=== PATIENT | male | born 1975 | race Caucasian/White ===

== ENCOUNTER 2022-06-13 09:50 | Emergency (ER) | payer OTHER ==
[~2022-06-13] VITALS: Ht 175.3 cm; Wt 145.1 kg
[2022-06-13 09:52] VITALS: BP_SYST 140
--- NOTE | 2022-06-13 09:57 | NUR ---
Pt present to ED via EMS reporting SVT ranging from 180-200bpm at residence. EMS reports pt self converrted in route to ED. Pt AOx4 GCS 15 in bed 3. Pt currently being seen by ED physician. Pt on quality assurance monitor final. EKG done.
--- NOTE | 2022-06-13 09:57 | NUR ---
MD MONIQUE AT BEDSIDE FOR ASSESS. PT VSS. NAD NOTED. NSR ON BUSINESS MANAGEMENT CONSULTANT. DENIES PALPITATIONS. WILL CONT TO MONITOR PT. AWAITING ADDITIONAL ORDERS.
[2022-06-13] MEDS ORDERED: NACL 0.9% 1,000 ML IV ONE (10:00)
[2022-06-13 11:09] LABS: BASOPHILS # (AUTO) 0.2 K/uL (0.0-0.2); BASOPHILS % (AUTO) 1.7 % (0.0-2.0); EOSINOPHILS # (AUTO) 0.2 K/uL (0.0-0.4); HEMATOCRIT 46.4 % (36-54); HEMOGLOBIN 15.5 g/dL (14.0-18.0); LYMPHOCYTES # (AUTO) 1.2 K/uL (1.0-5.5); LYMPHOCYTES % (AUTO) 10.1 % (20.5-51.5); MEAN CORPUSCULAR HEMOGLOBIN 28 pg (27-31); MEAN CORPUSCULAR HGB CONC 33 % (32-36); MEAN CORPUSCULAR VOLUME 84 fL (79.0-98.0); MONOCYTES # (AUTO) 0.6 K/uL (0.0-1.0); MONOCYTES % (AUTO) 4.8 % (1.7-9.3); NEUTROPHILS # (AUTO) 9.5 K/uL (1.8-7.7); NEUTROPHILS % (AUTO) 81.4 % (40.0-70.0); PLATELET COUNT (AUTO) 226 K/uL (130-430); RED BLOOD CELL COUNT(AUTO) 5.53 MIL/uL (4.2-6.2); RED CELL DISTRIBUTION WIDTH 14.3 % (9.0-15.0); WHITE BLOOD COUNT (AUTO) 11.7 K/uL (4.8-10.8)
[2022-06-13 11:12] LABS: ANION GAP 9 (5-15); CALCIUM 8.9 mg/dL (8.4-11.0); CHLORIDE 102 mmol/L (98-107); CREATININE 1.04 mg/dL (0.55-1.30); GLUCOSE 192 mg/dL (70-99); POTASSIUM 3.9 mmol/L (3.5-5.1); SODIUM SERUM 139 mmol/L (136-145); UREA NITROGEN, BLOOD 11 mg/dL (8-21)
[2022-06-13 11:22] LABS: ALANINE AMINOTRANSFERASE 44 U/L (12-78); ASPARTATE AMINOTRANSFERASE 35 U/L (10-37); TOTAL BILIRUBIN 0.4 mg/dL (0.0-1.0)
[2022-06-13 11:23] LABS: GFR AFRICAN AMERICAN 99 mL/min (>90)
[2022-06-13 11:57] VITALS: BP_SYST 134
--- NOTE | 2022-06-13 11:58 | NUR ---
Patient given written and verbal discharge instructions and verbalizes understanding. ER MD discussed with patient the results and treatment provided. Patient in stable condition. ID arm band removed. IV catheter removed intact and dressing applied, no active bleeding. Rx of N/A given. Patient educated on pain management and to follow up with PMD. Pain Scale . Opportunity for questions provided and answered. Medication side effect fact sheet provided.
== END 2022-06-13 11:58 | disposition home or self-care (01) ==
LOC: SED 09:50
DX: R00.2 Palpitations (principal); F43.9 Reaction to severe stress, unspecified; Z79.899 Other long term (current) drug therapy
CPT/HCPCS: 99285; 96360; 71045; 80053; 82550; 85025; 84484; 36415; 93005; J7030; 99284